=== PATIENT | male | born 1960 | race Caucasian/White ===

== ENCOUNTER → 2019-02-26 | Outpatient (CLI) | payer BC ==
[~2019-02-26] VITALS: Ht 182.9 cm; Wt 102.0 kg
[~2019-02-26] MED LIST: ASPIRIN 32325 MG/TAB PO; FISH OIL CONCEN1 SGL PO
[2019-02-26 11:03] VITALS: BP 151/99; PULSE 59
== END ==
LOC: COL.CARD 10:26
DX: R07.9 Chest pain, unspecified (principal); E78.00 Pure hypercholesterolemia, unspecified
CPT/HCPCS: A9500